=== PATIENT | male | born 1965 | race Caucasian/White ===

== ENCOUNTER 2019-04-07 09:20 | Inpatient (IN) | payer BC, OTHER ==
[2019-04-07 10:43] VITALS: BMI 23.7
--- NOTE | 2019-04-07 13:57 | HP ---
COWS - Scale Resting Pulse: 0= [place] 80 or Below Sweatin=Flushed/Facial Moisture Restless Observation: 1= Difficult to Sit Still Pupil Size: 2= Moderately Dilated Bone or Joint Aches: 2= Severe Diffuse Aches Runny Nose/ Eye Tearin= Nasal Congestion GI Upset > 30mins: 2= Nausea/Diarrhea Tremor Observation: 2= Slight Tremor Visible Yawning Observation: 1= 1-2x During Session Anxiety or Irritability: 2=Irritable/Anxious Goose Flesh Skin: 0=Smooth Skin COWS Score: 15 CIWA Score Nausea/Vomitin Muscle Tremors: 3 Anxiety: 4-Mod. Anxious/Guarded Agitation: 3 Paroxysmal Sweats: 1-Minimal Palms Moist Orientation: 0-Oriented Tacttile Disturbances: 0-None Auditory Disturbances: 0-None Visual Disturbances: 2-Mild Sensitivity Headache: 2-Mild CIWA-Ar Total Score: 17 - Admission Criteria [facility] Guidelines: Admission for Medically Managed Detox: Requires at least one of the followin. CIWA greater than 12 2. Seizures within the past 24 hours 3. Delirium tremens within the past 24 hours 4. Hallucinations within the past 24 hours 5. Acute intervention needed for co occurring medical disorder 6. Acute intervention needed for co occurring psychiatric disorder 7. Severe withdrawal that cannot be handled at a lower level of care (continued vomiting, continued diarrhea, abnormal vital signs) requiring intravenous medication and/or fluids 8. Patient presents the following: CIWA greater than 12 Admission Criteria Met: Admission criteria met Admission ROS BHS - HPI Chief Complaint: i wanna change my life Allergies/Adverse Reactions: Allergies Allergy/AdvReac Type Severity Reaction Status Date / Time Fish Containing Products Allergy Rash Verified 04/07/19 10:34 History of Present Illness: age 31 began using heroin began drinking age 14 was problematic since beginning previously used cocaine which also was problematic has had 4 rehab stays and 20 detox stays AA/NA 3 years abstinence Exam Limitations: No Limitations - Ebola screening Have you traveled outside of the country in the last 21 days: No Have you had contact with anyone from an Ebola affected area: No - Review of Systems Constitutional: Malaise, Unintentional Wgt. Loss EENT: reports: Nose Congestion Respiratory: reports: No Symptoms reported Cardiac: reports: No Symptoms Reported GI: reports: Nausea, Abdominal cramping : reports: No Symptoms Reported Musculoskeletal: reports: Joint Pain, Muscle Pain Integumentary: reports: Sweating, Other (tracts) Neuro: reports: No Symptoms reported Endocrine: reports: No Symptoms Reported Hematology: reports: No Symptoms Reported Psychiatric: reports: Agitated, Anxious Patient History - Patient Medical History Hx Anemia: No Hx Asthma: No Hx Chronic Obstructive Pulmonary Disease (COPD): No Hx Cardiac Disorders: No Hx Hypertension: No Hx Hypercholesterolemia: No HX Cerebrovascular Accident: No Hx Seizures: No Hx Diabetes: No Hx Gastrointestinal Disorders: Yes (HEARTBURN--TUMS) Hx Genitourinary Disorders: No Hx Sexually Transmitted Disorders: No Hx Renal Disease (ESRD): No Hx Thyroid Disease: No Hx Human Immunodeficiency Virus (HIV): No (NEGATIVE HX) Hx Hepatitis C: Yes ([place] WITH INTERFERON--IN REMISSION) Hx Depression: Yes (WAS ON WELLLBUTRIN) Hx Suicide Attempt: No (DENIES) Hx Bipolar Disorder: No Hx Schizophrenia: No - Patient Surgical History Past Surgical History: Yes Other Surgical History: HERNIA - PPD History Date: 04/12/16 Results: TBD - Smoking Cessation Smoking history: Current every day smoker Have you smoked in the past 12 months: Yes Aproximately how many cigarettes per day: 20 Hx Chewing Tobacco Use: No Initiated information on smoking cessation: Yes 'Breaking Loose' booklet given: 04/07/19 - Substances abused Alcohol Substance route: Oral Frequency: Daily Amount used: 1pint of vodka Age of first use: 14 Date of last use: 04/06/19 Heroin Substance route: Injection Frequency: Daily Amount used: 20 bags Age of first use: 31 Date of last use: 04/06/19 Family Disease History - Family Disease History Family Disease History: CA: Mother (OVARIAN [place]--), Other: Father (ETOH) Admission Physical Exam BHS - Vital Signs Vital Signs: Vital Signs - 24 hr 04/07/19 10:36 Temperature 97 F L Pulse Rate 72 Respiratory 17 Rate Blood Pressure 116/72 - Physical General Appearance: Yes: Disheveled, Mild Distress HEENTM: Yes: EOMI, Normocephalic Respiratory: Yes: Within Normal Limits Neck: Yes: Within Normal Limits Cardiology: Yes: Within Normal Limits, Regular Rhythm, Regular Rate, S1, S2 Abdominal: Yes: Within Normal Limits, Normal Bowel Sounds Genitourinary: Yes: Within Normal Limits Back: Yes: Within Normal Limits, Normal Inspection Musculoskeletal: Yes: Within Normal Limits, full range of Motion, Gait Steady Extremities: Yes: Within Normal Limits, Normal Capillary Refill, Normal Inspection, Normal Range of Motion Neurological: Yes: Within Normal Limits, silk screen etcher II-XII NML intact, Fully Oriented, Alert, Motor Strength 5/5, Normal Mood/Affect Integumentary: Yes: Within Normal Limits, Track Guevara Lymphatic: Yes: Within Normal Limits Cleared for Admission S - Detox or Rehab [facility] Level of Care: Medically Supervised Detox Regimen/Protocol: Methadone/Librium Breathalyzer - Breathalyzer Breathalyzer: 0 Urine Drug Screen - Test Device Lot number: [id number] Expiration date: 01/18/21 - Control Is test valid?: Yes - Results Drug screen NEGATIVE: No Urine drug screen results: FEN-Fentanyl, MOP-Opiates Inpatient Rehab Admission - Rehab Decision to Admit Inpatient rehab admission?: No
[2019-04-07] MEDS ORDERED: MAGNESIUM CITRATE 300 ML BOTTLE PO PRN (14:12)
[2019-04-07] MEDS ORDERED: MAG HYDROX/AL HYDROX/SIMETH 30 ML UNIT-DOSE CUP PO PRN (14:12)
[2019-04-07] MEDS ORDERED: ACETAMINOPHEN 325 MG TABLET (FP) PO PRN ×2 (14:12)
[2019-04-07] MEDS ORDERED: MENTHOL/PHENOL 1 EACH UD MM PRN (14:12)
[2019-04-07] MEDS ORDERED: MELATONIN 5 MG TABLETS PO PRN (14:12)
[2019-04-07] MEDS ORDERED: cloNIDine HCL 0.1 MG TABLET PO PRN (14:12)
[2019-04-07] MEDS ORDERED: MAGNESIUM HYDROX 2400MG/30ML ORAL SUSPENSION 30 ML CUP PO PRN (14:12)
[2019-04-07] MEDS ORDERED: BISMUTH SUBSALICYLATE 262 MG/15 ML BTL PO PRN (14:12)
[2019-04-07] MEDS ORDERED: hydrOXYzine PAMOATE 25 MG CAPSULE (FP) PO PRN (14:12)
[2019-04-07] MEDS ORDERED: chlordiazePOXIDE HCL 10 MG CAPSULE PO PRN (14:12)
[2019-04-07] MEDS ORDERED: METHADONE HCL 10 MG TABLET (FOR DETOX USE ONLY) PO ONE (15:00)
[2019-04-07] MEDS: NICOTINE 21 MG/24 HOURS TOPICAL PATCH TD SCH (17:24)
[2019-04-07] MEDS: chlordiazePOXIDE HCL 25 MG CAPSULE PO SCH (22:31)
[2019-04-07] MEDS: THIAMINE HCL 100 MG TABLET (FP) PO SCH (22:31)
[2019-04-08] MEDS: chlordiazePOXIDE HCL 25 MG CAPSULE PO SCH ×3 (05:10→21:19)
[2019-04-08] MEDS ORDERED: METHADONE HCL 5 MG TABLET (FOR DETOX USE ONLY) ONE (09:35)
[2019-04-08] MEDS ORDERED: METHADONE HCL 10 MG TABLET (FOR DETOX USE ONLY) ONE (09:35)
[2019-04-08] MEDS: PRENATAL VITAMINS W/ FOLIC ACID TABLET (FP) PO SCH (09:47)
[2019-04-08] MEDS: NICOTINE 21 MG/24 HOURS TOPICAL PATCH TD SCH (09:47)
[2019-04-08] MEDS ORDERED: METHADONE (DETOX) 20 MG, METHADONE (DETOX) 5 MG PO ONE (10:00)
--- NOTE | 2019-04-08 11:27 | CONSULT ---
[facility] Psychiatric Consult - Data Date of interview: 04/08/19 Admission source: [facility] Identifying data: Patient is a 54 year old single male, without children, unemployed, currently staying with his brother, and is supported by [facility]. This is one of multiple admissions for patient. Patient admitted to for alcohol and opiate dependence. Substance Abuse History: Smoking Cessation. Smoking history: Current every day smoker. Have you smoked in the past 12 months: Yes. Aproximately how many cigarettes per day: 20. Hx Chewing Tobacco Use: No. Initiated information on smoking cessation: Yes. 'Breaking Loose' booklet given: 04/07/19. - Substances abused. Alcohol. Substance route: Oral. Frequency: Daily. Amount used: 1pint of vodka. Age of first use: 14. Date of last use: . Heroin. Substance route: Injection. Frequency: Daily. Amount used: 20 bags. Age of first use: 31. Date of last use: 04/06/19 Medical History: Heartburn, Hep C Psychiatric History: Patient reports h/o multiple psychiatric hospitalizations ( [facility] and [facility] Mr. Falk reports past history of accepting wellbutrin 300mg although reports medication noncompliance for several months due to problems with his insurance. He reports receiving refills of wellbutrin 300mg XL from his primary care physican. At present, patient report stable mood and is requesting to resume wellbutrin. Physical/Sexual Abuse/Trauma History: denies. Mental Status Exam - Mental Status Exam Alert and Oriented to: Time, Place, Person Cognitive Function: Good Patient Appearance: Well Groomed Mood: Sad Affect: Mood Congruent Patient Behavior: Appropriate Speech Pattern: Appropriate Voice Loudness: Normal Thought Process: Goal Oriented Thought Disorder: Not Present Hallucinations: Denies Suicidal Ideation: Denies Homicidal Ideation: Denies Insight/Judgement: Poor Sleep: Fair Appetite: Fair Muscle strength/Tone: Normal Gait/Station: Normal Psychiatric Findings - Problem List ([place] 1, 2,3) (1) Alcohol dependence Current Visit: Yes Status: Acute (2) Opioid dependence with withdrawal Current Visit: Yes Status: Acute (3) Depressive disorder Current Visit: Yes Status: Suspected (4) Substance induced mood disorder Current Visit: Yes Status: Acute - Initial Treatment Plan Initial Treatment Plan: Psychoeducation provided. Detoxification in progress. Wellbutrin 150mg XL. Benefits and side effects discussed. Verbal consent given.
[2019-04-08 12:19] LABS: BILIRUBIN,TOTAL 0.6 mg/dL (0.2-1); BLOOD UREA NITROGEN 10.5 mg/dL (7-18); CALCIUM 9.2 mg/dL (8.5-10.1); CREATININE 0.7 mg/dL (0.55-1.3); POTASSIUM 3.9 mmol/L (3.5-5.1); TOT PROT 7.9 g/dl (6.4-8.2)
[2019-04-08 12:21] LABS: HEMATOCRIT 42.8 % (35.4-49); HEMOGLOBIN 14.6 GM/dL (11.7-16.9); MCH 29.3 pg (25.7-33.7); MCHC 34.1 g/dl (32.0-35.9); MEAN CELL VOLUME 85.8 fl (80-96); PLATELET COUNT 172 K/MM3 (134-434); RBC 4.98 M/mm3 (4.00-5.60); RDW 13.9 % (11.9-15.9); WHITE BLOOD COUNT 6.2 K/mm3 (4.0-10.0)
--- NOTE | 2019-04-08 15:03 | PN ---
S CIWA - CIWA Score Nausea/Vomitin Muscle Tremors: 2 Anxiety: 2 Agitation: 1-Slight > Activity Paroxysmal Sweats: 3 Orientation: 0-Oriented Tacttile Disturbances: 2-Mild Itch/Numbness/Burn Auditory Disturbances: 0-None Visual Disturbances: 0-None Headache: 0-None Present CIWA-Ar Total Score: 13 BHS COWS - Scale Resting Pulse: 0= [place] 80 or Below Sweatin= Chills/Flushing Restless Observation: 1= Difficult to Sit Still Pupil Size: 1= Pupils >than Normal Bone or Joint Aches: 2= Severe Diffuse Aches Runny Nose/ Eye Tearin= Nasal Congestion GI Upset > 30mins: 1= Stomach Cramp Tremor Observation of Outstretched Hands: 2= Slight Tremor Visible Yawning Observation: 0= None Anxiety or Irritability: 1=Feels Anxious/Irritable Goose Flesh Skin: 0=Smooth Skin COWS Score: 10 BHS Progress Note (SOAP) Subjective: interrupted sleep, sweats, shakes, achy bones Objective: 04/08/19 15:01 Vital Signs Temperature 98.2 F 04/08/19 13:52 Pulse Rate 78 04/08/19 13:52 Respiratory Rate 18 04/08/19 13:52 Blood Pressure 111/71 04/08/19 13:52 O2 Sat by Pulse Oximetry (%) Laboratory Tests 04/08/19 04/08/19 07:00 07:00 WBC 6.2 RBC 4.98 Hgb 14.6 Hct 42.8 MCV 85.8 MCH 29.3 MCHC 34.1 RDW 13.9 D Plt Count 172 D MPV 8.0 Sodium 140 Potassium 3.9 Chloride 105 Carbon Dioxide 30 Anion Gap 5 L BUN 10.5 Creatinine 0.7 Est GFR (CKD-EPI)AfAm 124.87 Est GFR (CKD-EPI)NonAf 107.74 Random Glucose 110 H Calcium 9.2 Total Bilirubin 0.6 AST 12 L ALT 15 Alkaline Phosphatase 87 Total Protein 7.9 Albumin 4.0 pt aox3 , appearing uncomfortable but not in distress. Assessment: 04/08/19 15:02 withdrawal sx's Plan: cont. detox increase fluids librium prn
[2019-04-08] MEDS: THIAMINE HCL 100 MG TABLET (FP) PO SCH (21:19)
[2019-04-09] MEDS: chlordiazePOXIDE 5 MG CAPSULE PO SCH ×3 (05:37→22:50)
[2019-04-09] MEDS ORDERED: METHADONE HCL 10 MG TABLET (FOR DETOX USE ONLY) PO ONE (10:00)
[2019-04-09] MEDS: NICOTINE 21 MG/24 HOURS TOPICAL PATCH TD SCH (10:26)
[2019-04-09] MEDS: PRENATAL VITAMINS W/ FOLIC ACID TABLET (FP) PO SCH (10:27)
--- NOTE | 2019-04-09 18:40 | PN ---
S CIWA - CIWA Score Nausea/Vomitin-No Nausea/No Vomiting Muscle Tremors: 2 Anxiety: 3 Agitation: 0-Normal Activity Paroxysmal Sweats: No Perspiration Orientation: 0-Oriented Tacttile Disturbances: 0-None Auditory Disturbances: 0-None Visual Disturbances: 3-Moderate Sensitivity Headache: 0-None Present CIWA-Ar Total Score: 8 BHS COWS - Scale Resting Pulse: 0= [place] 80 or Below Sweatin= No chills or Flushing Restless Observation: 1= Difficult to Sit Still Pupil Size: 0= Normal to Room Light Bone or Joint Aches: 0= None Runny Nose/ Eye Tearin= None GI Upset > 30mins: 0= None Tremor Observation of Outstretched Hands: 2= Slight Tremor Visible Yawning Observation: 1= 1-2x During Session Anxiety or Irritability: 2=Irritable/Anxious Goose Flesh Skin: 3=Piloerection COWS Score: 9 BHS Progress Note (SOAP) Subjective: Interrupted Sleep, Tremors, Anxious. Objective: PATIENT A & O X 3, OBSERVED AMBULATING ON UNIT UNASSISTED. IN NO ACUTE DISTRESS. 04/09/19 18:39 Vital Signs Temperature 97.3 F L 04/09/19 18:30 Pulse Rate 60 04/09/19 18:30 Respiratory Rate 18 04/09/19 18:30 Blood Pressure 98/59 L 04/09/19 18:30 O2 Sat by Pulse Oximetry (%) Laboratory Tests 04/08/19 04/08/19 04/08/19 07:00 07:00 07:00 WBC 6.2 RBC 4.98 Hgb 14.6 Hct 42.8 MCV 85.8 MCH 29.3 MCHC 34.1 RDW 13.9 D Plt Count 172 D MPV 8.0 Sodium 140 Potassium 3.9 Chloride 105 Carbon Dioxide 30 Anion Gap 5 L BUN 10.5 Creatinine 0.7 Est GFR (CKD-EPI)AfAm 124.87 Est GFR (CKD-EPI)NonAf 107.74 Random Glucose 110 H Calcium 9.2 Total Bilirubin 0.6 AST 12 L ALT 15 Alkaline Phosphatase 87 Total Protein 7.9 Albumin 4.0 RPR Titer Nonreactive LABS NOTED. Assessment: 04/09/19 18:40 WITHDRAWAL SYMPTOMS. Plan: CONTINUE DETOX. PRN MELATONIN PO FOR INSOMNIA.
[2019-04-09] MEDS: THIAMINE HCL 100 MG TABLET (FP) PO SCH (22:50)
[2019-04-09] MEDS: MELATONIN 5 MG TABLETS PO PRN (22:50)
[2019-04-10] MEDS ORDERED: chlordiazePOXIDE HCL 10 MG CAPSULE PO PRN
[2019-04-10] MEDS: chlordiazePOXIDE HCL 10 MG CAPSULE PO SCH ×3 (05:37→22:12)
[2019-04-10] MEDS ORDERED: METHADONE HCL 5 MG TABLET (FOR DETOX USE ONLY) ONE (09:21)
[2019-04-10] MEDS ORDERED: METHADONE HCL 10 MG TABLET (FOR DETOX USE ONLY) ONE (09:21)
[2019-04-10] MEDS ORDERED: METHADONE (DETOX) 10 MG, METHADONE (DETOX) 5 MG PO ONE (10:00)
[2019-04-10] MEDS: PRENATAL VITAMINS W/ FOLIC ACID TABLET (FP) PO SCH (10:19)
[2019-04-10] MEDS: NICOTINE 21 MG/24 HOURS TOPICAL PATCH TD SCH (10:19)
[2019-04-10] MEDS: METHOCARBAMOL 500 MG TABLET PO PRN ×3 (10:20→22:14)
--- NOTE | 2019-04-10 14:58 | PN ---
[facility] CIWA - CIWA Score Nausea/Vomitin-No Nausea/No Vomiting Muscle Tremors: 2 Anxiety: 2 Agitation: 2 Paroxysmal Sweats: 1-Minimal Palms Moist Orientation: 0-Oriented Tacttile Disturbances: 0-None Auditory Disturbances: 0-None Visual Disturbances: 0-None Headache: 0-None Present CIWA-Ar Total Score: 7 BHS COWS - Scale Resting Pulse: 0= [place] 80 or Below Sweatin= Chills/Flushing Restless Observation: 0= Sits Still Pupil Size: 0= Normal to Room Light Bone or Joint Aches: 1= Mild Discomfort Runny Nose/ Eye Tearin= Nasal Congestion GI Upset > 30mins: 1= Stomach Cramp Tremor Observation of Outstretched Hands: 1= Tremor [place], Not Seen Yawning Observation: 1= 1-2x During Session Anxiety or Irritability: 1=Feels Anxious/Irritable Goose Flesh Skin: 0=Smooth Skin COWS Score: 7 [facility] Progress Note (SOAP) Subjective: feeling better today less tremor alert tolerate food and fluid well Objective: 04/10/19 15:05 Vital Signs Temperature 97.0 F L 04/10/19 13:17 Pulse Rate 62 04/10/19 13:17 Respiratory Rate 20 04/10/19 13:17 Blood Pressure 118/79 04/10/19 13:17 O2 Sat by Pulse Oximetry (%) Laboratory Last Values WBC 6.2 K/mm3 (4.0-10.0) 04/08/19 07:00 RBC 4.98 M/mm3 (4.00-5.60) 04/08/19 07:00 Hgb 14.6 GM/dL (11.7-16.9) 04/08/19 07:00 Hct 42.8 % (35.4-49) 04/08/19 07:00 MCV 85.8 fl (80-96) 04/08/19 07:00 MCH 29.3 pg (25.7-33.7) 04/08/19 07:00 MCHC 34.1 g/dl (32.0-35.9) 04/08/19 07:00 RDW 13.9 % (11.9-15.9) D 04/08/19 07:00 Plt Count 172 K/MM3 (134-434) D 04/08/19 07:00 MPV 8.0 fl (7.5-11.1) 04/08/19 07:00 Sodium 140 mmol/L (136-145) 04/08/19 07:00 Potassium 3.9 mmol/L (3.5-5.1) 04/08/19 07:00 Chloride 105 mmol/L (98-107) 04/08/19 07:00 Carbon Dioxide 30 mmol/L (21-32) 04/08/19 07:00 Anion Gap 5 MMOL/L (8-16) L 04/08/19 07:00 BUN 10.5 mg/dL (7-18) 04/08/19 07:00 Creatinine 0.7 mg/dL (0.55-1.3) 04/08/19 07:00 Est GFR (CKD-EPI)AfAm 124.87 04/08/19 07:00 Est GFR (CKD-EPI)NonAf 107.74 04/08/19 07:00 Random Glucose 110 mg/dL (74-106) H 04/08/19 07:00 Calcium 9.2 mg/dL (8.5-10.1) 04/08/19 07:00 Total Bilirubin 0.6 mg/dL (0.2-1) 04/08/19 07:00 AST 12 U/L (15-37) L 04/08/19 07:00 ALT 15 U/L (13-61) 04/08/19 07:00 Alkaline Phosphatase 87 U/L (45-117) 04/08/19 07:00 Total Protein 7.9 g/dl (6.4-8.2) 04/08/19 07:00 Albumin 4.0 g/dl (3.4-5.0) 04/08/19 07:00 RPR Titer Nonreactive (NONREACTIVE) 04/08/19 07:00 lab noted Assessment: 04/10/19 15:06 alcohol and opiate withdrawal sx Plan: continue alcohol and opiate detox
[2019-04-10] MEDS: IBUPROFEN 400 MG TABLET (FP) PO PRN (17:28)
[2019-04-10] MEDS: THIAMINE HCL 100 MG TABLET (FP) PO SCH (22:12)
[2019-04-10] MEDS: MELATONIN 5 MG TABLETS PO PRN (22:14)
[2019-04-11] MEDS ORDERED: chlordiazePOXIDE HCL 10 MG CAPSULE PO ONE (05:00)
[2019-04-11] MEDS ORDERED: METHADONE HCL 10 MG TABLET (FOR DETOX USE ONLY) PO ONE (10:00)
[2019-04-11] MEDS: PRENATAL VITAMINS W/ FOLIC ACID TABLET (FP) PO SCH (10:16)
[2019-04-11] MEDS: NICOTINE 21 MG/24 HOURS TOPICAL PATCH TD SCH (10:17)
[2019-04-11] MEDS: METHOCARBAMOL 500 MG TABLET PO PRN ×2 (10:22→22:11)
[2019-04-11] MEDS: IBUPROFEN 400 MG TABLET (FP) PO PRN (10:23)
--- NOTE | 2019-04-11 11:03 | PN ---
S CIWA - CIWA Score Nausea/Vomitin-No Nausea/No Vomiting Muscle Tremors: 2 Anxiety: 1-Mildly Anxious Agitation: 2 Paroxysmal Sweats: No Perspiration Orientation: 0-Oriented Tacttile Disturbances: 0-None Auditory Disturbances: 0-None Visual Disturbances: 0-None Headache: 0-None Present CIWA-Ar Total Score: 5 BHS COWS - Scale Resting Pulse: 1= [place] 81-100 Sweatin= No chills or Flushing Restless Observation: 0= Sits Still Pupil Size: 0= Normal to Room Light Bone or Joint Aches: 1= Mild Discomfort Runny Nose/ Eye Tearin= None GI Upset > 30mins: 0= None Tremor Observation of Outstretched Hands: 1= Tremor [place], Not Seen Yawning Observation: 1= 1-2x During Session Anxiety or Irritability: 1=Feels Anxious/Irritable Goose Flesh Skin: 0=Smooth Skin COWS Score: 5 BHS Progress Note (SOAP) Subjective: report chronic back pain lidocain patch x 1 ambulating steady gait no limp no banding over social with peers in day room and hallway change position with ease noted Objective: 04/11/19 11:02 Vital Signs Temperature 96.9 F L 04/11/19 10:03 Pulse Rate 90 04/11/19 10:03 Respiratory Rate 18 04/11/19 10:03 Blood Pressure 102/70 04/11/19 10:03 O2 Sat by Pulse Oximetry (%) Laboratory Last Values WBC 6.2 K/mm3 (4.0-10.0) 04/08/19 07:00 RBC 4.98 M/mm3 (4.00-5.60) 04/08/19 07:00 Hgb 14.6 GM/dL (11.7-16.9) 04/08/19 07:00 Hct 42.8 % (35.4-49) 04/08/19 07:00 MCV 85.8 fl (80-96) 04/08/19 07:00 MCH 29.3 pg (25.7-33.7) 04/08/19 07:00 MCHC 34.1 g/dl (32.0-35.9) 04/08/19 07:00 RDW 13.9 % (11.9-15.9) D 04/08/19 07:00 Plt Count 172 K/MM3 (134-434) D 04/08/19 07:00 MPV 8.0 fl (7.5-11.1) 04/08/19 07:00 Sodium 140 mmol/L (136-145) 04/08/19 07:00 Potassium 3.9 mmol/L (3.5-5.1) 04/08/19 07:00 Chloride 105 mmol/L (98-107) 04/08/19 07:00 Carbon Dioxide 30 mmol/L (21-32) 04/08/19 07:00 Anion Gap 5 MMOL/L (8-16) L 04/08/19 07:00 BUN 10.5 mg/dL (7-18) 04/08/19 07:00 Creatinine 0.7 mg/dL (0.55-1.3) 04/08/19 07:00 Est GFR (CKD-EPI)AfAm 124.87 04/08/19 07:00 Est GFR (CKD-EPI)NonAf 107.74 04/08/19 07:00 Random Glucose 110 mg/dL (74-106) H 04/08/19 07:00 Calcium 9.2 mg/dL (8.5-10.1) 04/08/19 07:00 Total Bilirubin 0.6 mg/dL (0.2-1) 04/08/19 07:00 AST 12 U/L (15-37) L 04/08/19 07:00 ALT 15 U/L (13-61) 04/08/19 07:00 Alkaline Phosphatase 87 U/L (45-117) 04/08/19 07:00 Total Protein 7.9 g/dl (6.4-8.2) 04/08/19 07:00 Albumin 4.0 g/dl (3.4-5.0) 04/08/19 07:00 RPR Titer Nonreactive (NONREACTIVE) 04/08/19 07:00 lab noted Assessment: 04/11/19 11:03 alcohol and opiate withdrawal sx Plan: continue alcohol and opiate detox
[2019-04-11] MEDS: LIDOCAINE 5% TOPICAL PATCH TP SCH (12:00)
[2019-04-11] MEDS ORDERED: LIDOCAINE PATCH REMOVAL MC SCH (22:00)
[2019-04-11] MEDS: THIAMINE HCL 100 MG TABLET (FP) PO SCH (22:09)
[2019-04-11] MEDS: MELATONIN 5 MG TABLETS PO PRN (22:11)
[2019-04-12] MEDS: METHOCARBAMOL 500 MG TABLET PO PRN (05:38)
[2019-04-12] MEDS ORDERED: METHADONE HCL 5 MG TABLET (FOR DETOX USE ONLY) PO ONE (06:00)
[2019-04-12 06:04] VITALS: BP 118/71; PULSE 61; TEMP 97.5
[2019-04-12] MEDS: NICOTINE 21 MG/24 HOURS TOPICAL PATCH TD SCH (09:08)
[2019-04-12] MEDS: PRENATAL VITAMINS W/ FOLIC ACID TABLET (FP) PO SCH (09:08)
[2019-04-12] MEDS: LIDOCAINE 5% TOPICAL PATCH TP SCH (09:09)
--- NOTE | 2019-04-12 15:10 | DS ---
[facility] Detox Discharge Summary Admission Date: 04/07/19 Discharge Date: 04/12/19 - History Present History: Alcohol Dependence, Opioid Dependence Additional Comments: 54 years old male admitted on 04/07/19 for acute alcohol and opiate withdrawal sx management doing well with methadone and librium detox regimen no complication noted throughout the detox stay alert oriented x 3 denies shortness of breathe no dizziness - Physical Exam Results Vital Signs: Vital Signs Temperature 97.5 F L 04/12/19 06:03 Pulse Rate 61 04/12/19 06:30 Respiratory Rate 18 04/12/19 06:30 Blood Pressure 118/71 04/12/19 06:03 O2 Sat by Pulse Oximetry (%) Pertinent Admission Physical Exam Findings: alcohol and opiate withdrawal sx Laboratory Last Values WBC 6.2 K/mm3 (4.0-10.0) 04/08/19 07:00 RBC 4.98 M/mm3 (4.00-5.60) 04/08/19 07:00 Hgb 14.6 GM/dL (11.7-16.9) 04/08/19 07:00 Hct 42.8 % (35.4-49) 04/08/19 07:00 MCV 85.8 fl (80-96) 04/08/19 07:00 MCH 29.3 pg (25.7-33.7) 04/08/19 07:00 MCHC 34.1 g/dl (32.0-35.9) 04/08/19 07:00 RDW 13.9 % (11.9-15.9) D 04/08/19 07:00 Plt Count 172 K/MM3 (134-434) D 04/08/19 07:00 MPV 8.0 fl (7.5-11.1) 04/08/19 07:00 Sodium 140 mmol/L (136-145) 04/08/19 07:00 Potassium 3.9 mmol/L (3.5-5.1) 04/08/19 07:00 Chloride 105 mmol/L (98-107) 04/08/19 07:00 Carbon Dioxide 30 mmol/L (21-32) 04/08/19 07:00 Anion Gap 5 MMOL/L (8-16) L 04/08/19 07:00 BUN 10.5 mg/dL (7-18) 04/08/19 07:00 Creatinine 0.7 mg/dL (0.55-1.3) 04/08/19 07:00 Est GFR (CKD-EPI)AfAm 124.87 04/08/19 07:00 Est GFR (CKD-EPI)NonAf 107.74 04/08/19 07:00 Random Glucose 110 mg/dL (74-106) H 04/08/19 07:00 Calcium 9.2 mg/dL (8.5-10.1) 04/08/19 07:00 Total Bilirubin 0.6 mg/dL (0.2-1) 04/08/19 07:00 AST 12 U/L (15-37) L 04/08/19 07:00 ALT 15 U/L (13-61) 04/08/19 07:00 Alkaline Phosphatase 87 U/L (45-117) 04/08/19 07:00 Total Protein 7.9 g/dl (6.4-8.2) 04/08/19 07:00 Albumin 4.0 g/dl (3.4-5.0) 04/08/19 07:00 RPR Titer Nonreactive (NONREACTIVE) 04/08/19 07:00 lab noted - Treatment Hospital Course: Detox Protocol Followed, Detoxed Safely, Responded well, Discharged Condition Good, Rehab Referral Accepted Patient has Accepted a Rehab Referral to: community support approach - Medication Discharge Medications: Ambulatory Orders Bupropion HCl [Wellbutrin Xl -] 300 mg PO DAILY 04/10/16 Bupropion HCl [Wellbutrin Xl] 300 mg PO DAILY #30 tab.sr.24h 04/10/16 - Diagnosis (1) Alcohol dependence with uncomplicated withdrawal Status: Acute (2) Nicotine dependence Status: Acute Qualifiers: Nicotine product type: cigarettes Substance use status: in withdrawal Qualified Code(s): F17.213 - Nicotine dependence, cigarettes, with withdrawal (3) Opioid dependence with withdrawal Status: Acute - AMA Did Patient Leave Against Medical Advice: No
== END 2019-04-12 09:17 | disposition home or self-care (01) | DRG 897 ==
LOC: YASAS 09:20 → Y3N 14:49
PROVIDERS: ADMIT Surgery; ATTEND Surgery
PROC: HZ2ZZZZ Detoxification Services for Substance Abuse Treatment (ICD-10-PCS; principal; 2019-04-07)
DX: F11.23 Opioid dependence with withdrawal (principal); F10.230 Alcohol dependence with withdrawal, uncomplicated; F17.213 Nicotine dependence, cigarettes, with withdrawal; F32.9 Major depressive disorder, single episode, unspecified; F19.24 Other psychoactive substance dependence with psychoactive substance-induced mood disorder; Z91.013 Allergy to seafood
CPT/HCPCS: 36415; 80053; 85027; 86593

== ENCOUNTER 2022-02-04 11:37 | Inpatient (IN) | payer BC ==
[2022-02-04] MEDS ORDERED: ACETAMINOPHEN 325 MG TABLET (FP) PO PRN ×2 (12:47)
[2022-02-04] MEDS ORDERED: ONDANSETRON *ODT* 4 MG TABLET SL PRN (12:47)
[2022-02-04] MEDS ORDERED: DICYCLOMINE HCL 10 MG CAPSULE PO PRN (12:47)
[2022-02-04] MEDS ORDERED: MAGNESIUM CITRATE 300 ML BOTTLE PO PRN (12:47)
[2022-02-04] MEDS ORDERED: cloNIDine HCL 0.1 MG TABLET PO PRN (12:47)
[2022-02-04] MEDS ORDERED: LOPERAMIDE HCL 2 MG CAPSULE PO PRN (12:47)
[2022-02-04] MEDS ORDERED: BENZOCAINE/MENTHOL (CHLORASEPTIC ) LOZENGE MM PRN (12:47)
[2022-02-04] MEDS ORDERED: NICOTINE 10 MG CARTRIDGE (INHALER) IH PRN (12:47)
[2022-02-04] MEDS ORDERED: MAG HYDROX/AL HYDROX/SIMETH 30 ML UNIT-DOSE CUP PO PRN (12:47)
[2022-02-04] MEDS ORDERED: BISMUTH SUBSALICYLATE 524 MG/30 ML PO PRN (12:47)
[2022-02-04 14:05] VITALS: BMI 21.4
[2022-02-04] MEDS ORDERED: methaDONE HCL 10 MG TABLET (FOR DETOX USE ONLY) PO ONE (14:15)
[2022-02-04] MEDS: PRENATAL VITAMINS W/ FOLIC ACID TABLET (FP) PO SCH (15:23)
[2022-02-04] MEDS: hydrOXYzine PAMOATE 25 MG CAPSULE (FP) PO SCH ×3 (15:23→21:43)
[2022-02-04] MEDS: METHOCARBAMOL 500 MG TABLET PO PRN ×2 (15:23→21:43)
[2022-02-04] MEDS: NICOTINE 21 MG/24 HOURS TOPICAL PATCH TD SCH (15:24)
[2022-02-04] MEDS: THIAMINE HCL 100 MG TABLET (FP) PO SCH (21:43)
[2022-02-04] MEDS: MAGNESIUM HYDROX 2400MG/30ML ORAL SUSPENSION 30 ML CUP PO PRN (21:43)
[2022-02-04] MEDS: IBUPROFEN 400 MG TABLET (FP) PO PRN (21:43)
[2022-02-04] MEDS ORDERED: MELATONIN 5 MG TABLETS PO SCH (22:00)
[2022-02-05] MEDS: hydrOXYzine PAMOATE 25 MG CAPSULE (FP) PO SCH ×6 (05:01→23:17)
[2022-02-05] MEDS ORDERED: methaDONE HCL 10 MG TABLET (FOR DETOX USE ONLY) ONE (08:56)
[2022-02-05] MEDS: PRENATAL VITAMINS W/ FOLIC ACID TABLET (FP) PO SCH (10:04)
[2022-02-05] MEDS: METHOCARBAMOL 500 MG TABLET PO PRN ×2 (10:04→18:21)
[2022-02-05] MEDS: NICOTINE 21 MG/24 HOURS TOPICAL PATCH TD SCH (10:04)
[2022-02-05 10:17] LABS: HEMATOCRIT 41.1 % (35.4-49); HEMOGLOBIN 13.8 GM/dL (11.7-16.9); MCH 28.5 pg (25.7-33.7); MCHC 33.5 g/dl (32.0-35.9); MEAN CELL VOLUME 84.9 fl (80-96); MEAN PLT VOLUME 7.4 fl (7.5-11.1); PLATELET COUNT 259 10^3/uL (134-434); RBC 4.84 M/mm3 (4.00-5.60); RDW 16.5 % (11.9-15.9); WHITE BLOOD COUNT 4.8 K/mm3 (4.0-10.0)
[2022-02-05 10:26] LABS: CALCIUM 9.3 mg/dL (8.5-10.1)
[2022-02-05 10:27] LABS: ALBUMIN 3.9 g/dl (3.4-5.0); BLOOD UREA NITROGEN 10.8 mg/dL (7-18)
[2022-02-05 10:30] LABS: CREATININE 0.6 mg/dL (0.55-1.3)
[2022-02-05 10:31] LABS: BILIRUBIN,TOTAL 0.6 mg/dL (0.2-1); TOT PROT 7.3 g/dl (6.4-8.2)
[2022-02-05] MEDS: IBUPROFEN 400 MG TABLET (FP) PO PRN ×2 (14:01→23:17)
[2022-02-05 14:57] LABS: HIV INTERPRETATION NEGATIVE (NEGATIVE)
[2022-02-05] MEDS: MAGNESIUM HYDROX 2400MG/30ML ORAL SUSPENSION 30 ML CUP PO PRN (18:21)
[2022-02-05] MEDS: THIAMINE HCL 100 MG TABLET (FP) PO SCH ×2 (23:05→23:17)
[2022-02-05] MEDS: MELATONIN 5 MG TABLETS PO SCH ×2 (23:05→23:17)
[2022-02-06] MEDS: hydrOXYzine PAMOATE 25 MG CAPSULE (FP) PO SCH ×5 (05:05→22:05)
[2022-02-06] MEDS: METHOCARBAMOL 500 MG TABLET PO PRN ×2 (05:05→22:08)
[2022-02-06] MEDS: IBUPROFEN 400 MG TABLET (FP) PO PRN ×3 (05:05→22:08)
[2022-02-06] MEDS ORDERED: methaDONE HCL 10 MG TABLET (FOR DETOX USE ONLY) PO ONE (10:00)
[2022-02-06] MEDS: NICOTINE 21 MG/24 HOURS TOPICAL PATCH TD SCH (10:09)
[2022-02-06] MEDS: PRENATAL VITAMINS W/ FOLIC ACID TABLET (FP) PO SCH (10:09)
[2022-02-06] MEDS: MELATONIN 5 MG TABLETS PO SCH (22:05)
[2022-02-06] MEDS: THIAMINE HCL 100 MG TABLET (FP) PO SCH (22:05)
[2022-02-07 00:06] LABS: SARS-CoV-2 NAA Not Detected (Not Detected)
[2022-02-07] MEDS: hydrOXYzine PAMOATE 25 MG CAPSULE (FP) PO SCH ×5 (05:00→22:16)
[2022-02-07] MEDS: diazePAM 5 MG TABLET PO PRN ×3 (05:02→18:07)
[2022-02-07] MEDS: METHOCARBAMOL 500 MG TABLET PO PRN ×2 (05:02→10:35)
[2022-02-07] MEDS ORDERED: methaDONE HCL 10 MG TABLET (FOR DETOX USE ONLY) ONE (09:12)
[2022-02-07] MEDS: PRENATAL VITAMINS W/ FOLIC ACID TABLET (FP) PO SCH (10:35)
[2022-02-07] MEDS: NICOTINE 21 MG/24 HOURS TOPICAL PATCH TD SCH (10:38)
[2022-02-07] MEDS: MELATONIN 5 MG TABLETS PO SCH (22:15)
[2022-02-07] MEDS: THIAMINE HCL 100 MG TABLET (FP) PO SCH (22:16)
[2022-02-08] MEDS: hydrOXYzine PAMOATE 25 MG CAPSULE (FP) PO SCH ×5 (05:09→22:14)
[2022-02-08] MEDS ORDERED: methaDONE HCL 10 MG TABLET (FOR DETOX USE ONLY) PO ONE (10:00)
[2022-02-08] MEDS: PRENATAL VITAMINS W/ FOLIC ACID TABLET (FP) PO SCH (10:11)
[2022-02-08] MEDS: NICOTINE 21 MG/24 HOURS TOPICAL PATCH TD SCH (10:12)
[2022-02-08] MEDS: IBUPROFEN 400 MG TABLET (FP) PO PRN (10:13)
[2022-02-08] MEDS: METHOCARBAMOL 500 MG TABLET PO PRN (18:05)
[2022-02-08] MEDS: diazePAM 5 MG TABLET PO PRN ×2 (18:05→22:13)
[2022-02-08] MEDS: THIAMINE HCL 100 MG TABLET (FP) PO SCH (22:14)
[2022-02-08] MEDS: MELATONIN 5 MG TABLETS PO SCH (22:14)
[2022-02-09] MEDS: hydrOXYzine PAMOATE 25 MG CAPSULE (FP) PO SCH ×2 (05:01→09:42)
[2022-02-09 09:13] VITALS: BP 140/82; PULSE 77; TEMP 97.1
[2022-02-09] MEDS: PRENATAL VITAMINS W/ FOLIC ACID TABLET (FP) PO SCH (09:41)
[2022-02-09] MEDS: NICOTINE 21 MG/24 HOURS TOPICAL PATCH TD SCH (09:42)
== END 2022-02-09 10:08 | disposition home or self-care (01) | DRG 897 ==
LOC: YASAS 11:37 → Y6N 14:58
PROVIDERS: ADMIT Allergy & Immunology; ATTEND Surgery
PROC: HZ2ZZZZ Detoxification Services for Substance Abuse Treatment (ICD-10-PCS; principal; 2022-02-04)
DX: F11.23 Opioid dependence with withdrawal (principal); F19.282 Other psychoactive substance dependence with psychoactive substance-induced sleep disorder; F17.213 Nicotine dependence, cigarettes, with withdrawal; F19.24 Other psychoactive substance dependence with psychoactive substance-induced mood disorder; F31.9 Bipolar disorder, unspecified; I83.93 Asymptomatic varicose veins of bilateral lower extremities; Z62.810 Personal history of physical and sexual abuse in childhood; Z86.19 Personal history of other infectious and parasitic diseases; Z91.013 Allergy to seafood
CPT/HCPCS: 36415; 80053; 82947; 83036; 85027; 86780; 87389; 93005; 93010; C9803-CS; J0735; U0003; U0005